=== PATIENT | female | born 1970 | race Caucasian/White ===

== ENCOUNTER → 2021-05-31 15:56 | Outpatient (BNVA) | payer OTHER, SELFPAY | PROVIDERS: Family Provider Electrodiagnostic Medicine; Visit Provider Psychiatry & Neurology Psychiatry | DX: F33.1 Major depressive disorder, recurrent, moderate (principal); F43.10 Post-traumatic stress disorder, unspecified; Z79.899 Other long term (current) drug therapy; Z03.89 Encounter for observation for other suspected diseases and conditions ruled out | CPT/HCPCS: 80053; 80061; 83036; 84443; 85025 ==

== ENCOUNTER → 2022-10-10 12:37 | Outpatient (BNVA) | payer BC, SELFPAY | PROVIDERS: Family Provider Electrodiagnostic Medicine; Visit Provider Family Medicine | DX: E78.5 Hyperlipidemia, unspecified (principal); M19.90 Unspecified osteoarthritis, unspecified site; J44.9 Chronic obstructive pulmonary disease, unspecified; F33.1 Major depressive disorder, recurrent, moderate; F43.10 Post-traumatic stress disorder, unspecified; F17.200 Nicotine dependence, unspecified, uncomplicated; Z71.6 Tobacco abuse counseling; Z12.2 Encounter for screening for malignant neoplasm of respiratory organs | CPT/HCPCS: 80053; 80061; 81000; 84439; 84443; 85025 ==

== ENCOUNTER 2022-10-11 13:52 | Outpatient (CLI) | payer BC, SELFPAY ==
--- NOTE | 2022-10-11 14:02 | XR_ITS ---
WS: [id number] Lumbar spine, 3 views, 10/11/2022 Clinical Data: Back pain Comparison: Lumbar spine, 06/02/2014. Findings: No compression fractures or subluxation is seen. There is minimal degenerative disc narrowing at L5-S 1. There is a levoscoliosis. The transverse processes and SI joints are normal. XR/XR lumbar spine 2-3V* [id number] Impression: Minimal levoscoliosis and disc narrowing at L5-S1.
== END 2022-10-11 13:53 | disposition home or self-care (01) ==
LOC: RAD 13:58
PROVIDERS: PCP Family Medicine; Visit Provider Family Medicine
DX: M41.87 Other forms of scoliosis, lumbosacral region (principal)
CPT/HCPCS: 72100

== ENCOUNTER 2022-10-21 12:25 | Outpatient (CLI) | payer BC, SELFPAY ==
--- NOTE | 2022-10-21 12:45 | CT_ITS ---
WS: [id number] LDCT LUNG CANCER SCREENING HISTORY: lung CA screening TECHNIQUE: Axial imaging performed from the apices to 1 cm below the costophrenic angles. Coronal and sagittal reformats are submitted with axial MIP series. All CT scans at [facility] use at least one of these dose optimization techniques: automated exposure control; mA and/or kV adjustment per patient size (includes targeted exams where dose is matched to clinical indication); or iterativ e reconstruction. DLP: 51.21 mGy.cm DIvol: Mean CTDIvol: 1.10 (mGy) COMPARISON: None available. Diagnostic quality: Satisfactory Lungs: Linear areas of atelectasis at the lung bases. There are a few scattered benign granulomata. N o mass or nodule. No endobronchial lesions. Heart: Normal size heart with no pericardial effusion.. Other findings: No adenopathy. Normal size aorta. 11 mm LEFT adrenal nodule CT/CT lung screening [id number] IMPRESSION: LUNG-RADS: 1S-Negative with Significant Findings FOLLOW UP: 12 Month: Continue annual screening with LDCT OTHER FINDINGS (S MODIFIER): LEFT adrenal nodule at 11 mm. Statistically with n o history of malignancy this is probably benign. For further evaluation MRI of the adrenal gland with and without contrast can be obtained.
== END 2022-10-21 12:26 | disposition home or self-care (01) ==
LOC: RAD 12:27
PROVIDERS: PCP Family Medicine; Visit Provider Family Medicine
DX: Z12.2 Encounter for screening for malignant neoplasm of respiratory organs (principal); F17.219 Nicotine dependence, cigarettes, with unspecified nicotine-induced disorders
CPT/HCPCS: 71271; 80053; 80061; 81000; 84439; 84443; 85025

== ENCOUNTER 2022-11-07 13:48 | Outpatient (CLI) | payer BC, MEDICAID, SELFPAY ==
--- NOTE | 2022-11-07 14:04 | MM_ITS ---
WS: [id number] SCREENING DIGITAL TOMOSYNTHESIS MAMMOGRAM WITH CAD HISTORY: breast CA screening COMPARISON: None available. Bilateral CC and MLO with tomosynthesis views submitted. Synthetic mammography reviewed. Computer aid ed detection analyzed. Breast composition: There are scattered areas of fibroglandular density. No suspicious masses, microc alcifications or architectural distortion. Benign calcifications in each breast. MM/[place] [id number] IMPRESSION: BI-RADS: 2-Benign FOLLOW UP: 1 Year Follow-up
== END 2022-11-07 13:49 | disposition home or self-care (01) ==
PROVIDERS: PCP Family Medicine; Visit Provider Family Medicine
DX: Z12.31 Encounter for screening mammogram for malignant neoplasm of breast (principal)
CPT/HCPCS: 77063; 77067

== ENCOUNTER → 2022-12-02 13:36 | Outpatient (BNVA) | payer BC, MEDICAID, SELFPAY | PROVIDERS: PCP Family Medicine; Visit Provider Family Medicine | DX: Z12.4 Encounter for screening for malignant neoplasm of cervix (principal); Z01.419 Encounter for gynecological examination (general) (routine) without abnormal findings | CPT/HCPCS: 87624 ==

== ENCOUNTER → 2023-07-10 14:45 | Outpatient (BNVA) | payer BC, MEDICAID, SELFPAY | PROVIDERS: PCP Family Medicine; Referring Provider Family Medicine; Visit Provider Student in an Organized Health Care Education/Training Program | DX: G56.23 Lesion of ulnar nerve, bilateral upper limbs (principal); G56.02 Carpal tunnel syndrome, left upper limb | CPT/HCPCS: 73130 ==

== ENCOUNTER 2023-08-14 08:14 | Day surgery (SDC) | payer BC, MEDICAID, SELFPAY ==
[2023-08-14] VITALS (14 sets, daily range): BP systolic 100–179; BP diastolic 60–104; PULSE 73–101; RESP 16–20; TEMP 36.4–36.6; O2SAT 90–96; BMI 30.4
[2023-08-14] MEDS: sodium chloride 0.9% 1,000 ML 30 ML IV (08:50)
[2023-08-14] MEDS: scopolamine 1.5 Patch 1 PATCH TRANSDERMA (08:51)
[2023-08-14] MEDS: acetaminophen 1,000 MG/100 ML PIGGYBACK 400 MG IV (08:51)
[2023-08-14] MEDS: ketorolac 30 mg/mL INJ IVP (08:51)
--- NOTE | 2023-08-14 09:22 | W.PM.OPSFHP ---
Same Day Surgery H&P Indication for Procedure/HPI DATE OF PROCEDURE: August 14, 2023 CHIEF COMPLAINT/INDICATIONFOR SURGICAL PROCEDURE: Left carpal tunnel syndrome, left cubital tunnel syndrome PREOP DIAGNOSIS: Left carpal tunnel syndrome, left cubital tunnel syndrome PLANNED PROCEDURE: Operation Date: 08/14/23 10:00 Proposed Procedures p Carpal Tunnel Release(Left) - Rey Paredes DO s Cubital Tunnel Release(Left) - Rey Paredes DO s Ulnar Nerve Transposition/possible(Left) - Rey Paredes DO Medications/Allergies* Home Medications Medication Instructions Recorded Confirmed Type diphenhydramine 25 1 tab PO .hs 10/31/22 08/14/23 History mg-acetaminophen 500 mg tablet (Tylenol PM Extra Strength) Allergies/Adverse Reactions Allergy/AdvReac Type Severity Reaction Status Date / Time prednisone Allergy Unknown Unknown Verified 07/10/23 15:05 Current Medications: Generic Name Dose Route Start Last Admin Trade Name Freq PRN Reason Stop Dose Admin Sodium Chloride 1,000 mls @ 30 mls/hr 08/14/23 08:45 08/14/23 08:50 Sodium Chloride 0.9% IV 08/15/23 08:44 30 mls/hr .Q24H CLAUDIA Administration Pertinent History/Comorbid Conditions* Medical History (Updated 07/14/23 @ 22:59 by Rey Paredes DO) Severe tobacco use disorder COPD (chronic obstructive pulmonary disease) Dyslipidemia Osteoarthritis Degenerative disc disease delivery delivered Psychiatric care Major depressive disorder PTSD (post-traumatic stress disorder) Surgical History (Updated 10/10/22 @ 13:20 by Hernesto Brink MD) H/O removal of cyst Family History (Updated 10/31/22 @ 13:08 by Paula Leal LPN) Diabetes CAD (coronary artery disease) Dementia Lung disease Cancer Unknown Stroke Denies family history of Clotting disorder Hyperlipidemia Psychiatric illness Chronic kidney disease (CKD) Anesthesia complication Bleeding disorder Hypertension Social History Smoking and tobacco/nicotine status: current every day tobacco/nicotine user cigarettes Packs smoked per day: 3 Years cigarettes smoked: 40 Quit status (tobacco/nicotine): not considering quitting Second hand smoke exposure: Yes Alcohol intake: former Substance/Drug Use: never Lives independently: Yes Marital status: Current gender identity: Female Bev/Yazdanism: Scientologist Special bev needs: No Agree to transfusion: Yes Pertinent Exam Findings alert, oriented x 3, operative site marked and procedure specific exam findings Please refer to office visit on 07/10/2023 for detailed orthopedic examination which included below: Left upper extremity exam normal C-spine ROM No pain. Negative Spurlings Negative Tinel's@ shoulder. Normal ROM Normal ROM elbow. Positive Tinel's@ elbow left Positive elbow flexion test left Left wrist: Positive median compression test. Positive Tinel's Positive Phalens Thenar and intrinsic weakness noted Recommendations Surgery/Procedure today Other Plans: Plan to proceed with left carpal tunnel release, left cubital tunnel release. Patient understands incidence procedure risk benefits complication alternatives of surgery and through shared decision making like to proceed with surgical intervention. All questions answered. Coding Level of Care Code Acute Code for [facility]
--- NOTE | 2023-08-14 09:51 | ANES.PREANE2 ---
Pre-Anesthetic Assessment Height/Weight: Height 1.55 m Weight 73.028 kg Temp Pulse Resp BP Pulse Ox O2 Del Method 97.5 F L 101 H 18 179/104 96 Room Air 08/14/23 08:38 08/14/23 08:38 08/14/23 08:38 08/14/23 08:38 08/14/23 08:38 08/14/23 08:38 Preop Diagnosis: Left carpal tunnel syndrome, left cubital tunnel syndrome Operation Date: 08/14/23 10:00 Proposed Procedures p Carpal Tunnel Release(Left) - Rey Vanderburgh, DO s Cubital Tunnel Release(Left) - Rey Vanderburgh, DO s Ulnar Nerve Transposition/possible(Left) - Rey Vanderburgh, DO Familial anesthetic complications: NOne Was Beta Angel taken within 24 hours: N/A Was Clonidine taken within 24 hours: N/A Last intake: Intake (cup of soda at 0700) Last Liquid Date 08/14/23 Last Liquid Time 07:00 Last Solid Date 08/13/23 Last Solid Time 22:00 Social Tobacco and No alcohol Exam alert, oriented x 3, clear to auscultation bilaterally and regular rate & rhythm Airway Mallampati: Class II Dentition: false Pulmonary Chronic Obstructive Pulmonary Disease Metabolic Hyperlipidemia Anesthetic Plan ASA status: 3 Anesthesia: General Risk of > 500 ml blood loss (7ml/kg in children): No Medications/Allergies Home Medications Medication Instructions Recorded Confirmed Last Taken Type diphenhydramine 25 1 tab PO .hs 10/31/22 08/14/23 08/13/23 History mg-acetaminophen 500 mg tablet (Tylenol PM Extra Strength) atorvastatin 40 mg tablet (Lipitor) 40 mg PO DAILY #90 tabs 04/07/23 08/14/23 08/13/23 Rx meloxicam 15 mg tablet 15 mg PO DAILY #90 tabs 06/04/23 08/14/23 08/13/23 Rx citalopram 20 mg tablet 30 mg (1.5 x 20 mg) PO DAILY 30 07/15/23 08/14/23 08/13/23 Rx days #45 tabs umeclidinium 62.5 mcg-vilanterol 1 inh inhalation Q24H #60 ea 07/21/23 08/14/23 08/14/23 Rx 25 mcg/actuation powdr for inhalation (Anoro Ellipta) Allergies Allergy/AdvReac Type Severity Reaction Status Date / Time prednisone Allergy Unknown Unknown Verified 07/10/23 15:05 Current Medications Generic Name Dose Route Start Last Admin Trade Name Maria Esther PRN Reason Stop Dose Admin Sodium Chloride 1,000 mls @ 30 mls/hr 08/14/23 08:45 08/14/23 08:50 Sodium Chloride 0.9% IV 08/15/23 08:44 30 mls/hr .Q24H CLAUDIA Administration PFSH Anesthesia Medical History Severe tobacco use disorder COPD (chronic obstructive pulmonary disease) Dyslipidemia Osteoarthritis Degenerative disc disease delivery delivered Psychiatric care Major depressive disorder PTSD (post-traumatic stress disorder) Surgical History H/O removal of cyst Family History Unknown Cancer Other CAD (coronary artery disease) Dementia Diabetes Lung disease Stroke Denies family history of Clotting disorder Hyperlipidemia Psychiatric illness Chronic kidney disease (CKD) Anesthesia complication Bleeding disorder Hypertension Social History Smoking and tobacco/nicotine status: current every day tobacco/nicotine user cigarettes Packs smoked per day: 3 Years cigarettes smoked: 40 Quit status (tobacco/nicotine): not considering quitting Second hand smoke exposure: Yes Alcohol intake: former Substance/Drug Use: never Lives independently: Yes Marital status: Current gender identity: Female Bev/Jew: Uatsdin Special bev needs: No Agree to transfusion: Yes Data Anesthesia Cardiac Studies: No Data to Display
[2023-08-14] MEDS: ceFAZolin 2,000 MG in sodium chloride 0.9% (plus) 50 ML 100 MG IV (10:19)
[2023-08-14] MEDS: lidocaine-epi 1% 20 mL INJ INJECTION (10:55)
[2023-08-14] MEDS: ROPivacaine 0.5% SDV 30 mL 150 MG INJECTION (10:55)
--- NOTE | 2023-08-14 11:09 | P.BOP_ITS ---
Date of Procedure: 08/14/2023 Surgeon: Rey Paredes DO Senior Consulting Manager(s): None Procedure(s) performed: Left carpal tunnel release Left cubital tunnel release Findings of the procedure(s): Patient underwent procedure as planned without any issues or complications patient found to have left carpal tunnel syndrome left cubital tunnel syndrome underwent release without any issues or complications. No unstable ulnar nerve and no transposition was performed Estimated blood loss: 5 mL Specimen(s) removed: None Post-operative diagnosis: Left carpal tunnel syndrome, left cubital tunnel syndrome
--- NOTE | 2023-08-14 11:10 | P.OP_ITS ---
Operative Report Date of procedure: August 14, 2023 Surgeon: Rey Paredes DO Procedure: Preoperative diagnosis: Left carpal tunnel syndrome, left cubital tunnel syndrome Postop Diagnosis: Same Procedure done: Left carpal tunnel release Left?cubital tunnel tunnel release (ulnar nerve decompression at elbow) Surgeon: Rey Paredes DO Estimated blood loss: 5 mL Tourniquet? 13 minutes IV fluids: 800 mL Complications: None Findings: See operative report narrative Condition: stable Disposition: same day Brief History: Patient's been seen and worked up in the outpatient setting and findings con sistent with preoperative diagnosis.? Patient has Left carpal tunnel syndrome as well as Left?cubital tunnel syndrome which has been worked up in the outpatient setting has physical exam findings consistent with this as well as confirmatory nerve conduction/EMG nerve conduction study consistent with diagnosis.? Patient's failed conservative treatment.? As result through shared decision making agreed to proceed with? Left carpal tunnel and Left?cubital tunnel release we talked about treatment options as far as nonoperative and operative intervention.? Understands risk benefits complication alternatives surgical nonsurgical treatment options.? Understanding his risks he agrees to proceed with surgical intervention. Understanding these risks he agrees to proceed with surgery.? Consent obtained in office. Procedure: Patient seen evaluate in the preoperative holding area.? Consent was reviewed and signed with patient.? Correct extremity marked.? Patient seen evaluated by anesthesia department once cleared for surgery was then taken back to the operative suite placed in supine position all bony prominences well-padded patient properly secured to bed.? Left upper extremity placed onto armboard.? Nonsterile tourniquet applied Left upper arm.? Patient then underwent anesthesia per the anesthesia department.? Patient's Left upper extremity was then prepped and draped in standard orthopedic fashion.? Final timeout performed.? Patient received appropriate preoperative antibiotics. Esmarch was used exsanguinate the Left upper extremity.? Tourniquet was insufflated to 250 mmHg. I started with the carpal tunnel release first.? I made a standard open carpal tunnel release starting with the distal most extent in the palm at the Pham's cardinal line and the incision line was made in line with the fourth ray and ended just distal to the wrist crease.? Sharp scalpel incision was made through skin and subcutaneous tissue I then utilizing self retainer then began to dissect with dissection scissors split longitudinally the palmar fascia.? Next I then utilizing my physical laboratory assistant Aidandagabe retractors subsequently utilizing scalpel feathered through the palmaris brevis as well as through the transverse carpal ligament distally.? Once I encountered the floor of the transverse carpal ligament and entered into the carpal tunnel I then switched to dissection scissors.? Carefully released the distal extent of the transverse carpal ligament to the palmar fat.? Care was to protect the recurrent branch and not injured this during this part of the case.? Next I then placed a [place] un derneath the transverse carpal ligament proximally to protect the nerve in the carpal tunnel contents.? And then I subsequently under loupe magnification utilize my dissection scissors to release the transverse carpal ligament into the antebrachial fascia under direct visualization with care to keep my scissors with a curved ulnarly away from the palmar cutaneous branch.? The transverse carpal was then completely decompressed proximally and a [place] was then placed both distally and proximally throughout the carpal tunnel and had complete decompression of the nerve.? The nerve did appear to have hourglass shape as it went through the carpal tunnel.? With significant irritation noted around the nerve.? No masses were noted within the contents of the carpal tunnel.? This completed the carpal tunnel release and then I subsequently irrigated the wound bed and placed a wet Ray-Dalia into the incision for later closure. Next marked out the landmarks of the Left elbow of the medial epicondyle and olecranon and made a curvilinear incision following the course of the ulnar nerve at the medial aspect of the elbow.? Sharp scalpel incision was made through skin and subcutaneous tissue.? Next I switched to Littler dissection scissors and spread in plane of the medial antebrachial cutaneous nerve branching which was protected throughout this part of the dissection.? Then I directly came down over the fascia and identified the 2 heads of the FCU fascia and split this Left in the middle and subsequently identified my ulnar nerve distally.? This was then completely released distally under direct visualization and loupe magnification.? Once the nerve was then identified I then subsequently tracked this proximally and released this through Cam's ligament as well as complete decompression of the nerve proximally all the way past the intermuscular septum.? The nerve was completely released and decompressed both proximally and distally.? Ulnar nerve neurolysis performed and completed both proximally and distally with dissection scissors.? I then took the elbow through range of motion and there was no instability or subluxating of the ulnar nerve.? This completed?cubital tunnel release.? ?Next the wound bed was thoroughly irrigated.? Tourniquet was deflated.? Hemostasis was satisfactory at the?cubital tunnel release surgery site. I then inspected the carpal tunnel incision and this was found to have satisfactory hemostasis and all this was maintained through bipolar electrocautery.? At this point time I sequentially closed?cubital tunnel site with 3-0 Vicryl suture in a running horizontal mattress nylon stitch.? ? The carpal tunnel release surgery was then closed in standard interrupted mattress fashion.? Dressing was Xeroform 4 x 4's ABD Curlex soft roll and an Dimas wrap has a bulky soft dressing. Patient was then awakened from anesthesia and taken to PACU in stable condition. Disposition: Patient taken to PACU in stable condition recovering well.? Patient will receive appropriate discharge instructions as well as pain medication postoperatively.? We will follow-up with me in the office in 2 weeks.? Patient understands agrees with current plan.? All questions answered.? He understands if any questions or concerns and contact the office for follow-up appointment..
--- NOTE | 2023-08-14 13:35 | ANE.PACU2 ---
Inpatient post-anesthesia follow up: Airway intact: Yes Vital signs: Temperature 97.5 F Pulse Rate 85 Respiratory Rate 18 Blood Pressure 113/81 Pulse Oximetry 94 Oxygen Delivery Me thod Room Air Oxygen Flow Rate 2 Fraction of Inspir ed Oxygen Hydration adequate: Yes Nausea and vomiting: No Pain level: 1 Mental status: Baseline
== END 2023-08-14 13:35 | disposition home or self-care (01) ==
PROVIDERS: PCP Family Medicine; Visit Provider Student in an Organized Health Care Education/Training Program
PROC: (CPT 64721; principal; 2023-08-14 10:00)
PROC: (CPT 64718; 2023-08-14 10:00)
PROC: (CPT 64718; 2023-08-14 10:00)
DX: G56.02 Carpal tunnel syndrome, left upper limb (principal); G56.22 Lesion of ulnar nerve, left upper limb; J44.9 Chronic obstructive pulmonary disease, unspecified; E78.5 Hyperlipidemia, unspecified; F17.210 Nicotine dependence, cigarettes, uncomplicated
CPT/HCPCS: 64718; 64721; J0131; J0330; J0690; J1885; J2405; J2704; J2710; J2795; J3010; J3490; J3535; J7030

== ENCOUNTER 2023-09-01 12:15 | Outpatient (CLI) | payer OTHER, SELFPAY ==
--- NOTE | 2023-09-01 12:21 | XR_ITS ---
WS: [id number] Comparison 10/11/2022. No fracture or dislocation. Disc bases are preserved. Increased lumbar lordosis. Mild levoscoliosis. Posterior elements are intact. IMPRESSION: 1. Mild levoscoliosis and increased lordosis. 2. No fracture or malalignment.
--- NOTE | 2023-09-01 12:21 | XR_ITS ---
WS: [id number] Exam: XR chest 2V* [id number] Date/Time of Exam: 09/01/2023 12:23 PM Reason For Exam: COPD Findings: The lungs are clear and fully expanded. Costophrenic angles are sharp. No infiltrates. Bronchovascula r relief appears normal. Cardiac silhouette is unremarkable. Bony elements are intact. IMPRESSION: Unremarkable chest radiograph.
== END 2023-09-01 12:16 | disposition home or self-care (01) ==
LOC: RAD 12:20
PROVIDERS: PCP Family Medicine; Visit Provider Dermatology
DX: Z02.71 Encounter for disability determination (principal); J44.9 Chronic obstructive pulmonary disease, unspecified; M54.9 Dorsalgia, unspecified; M41.86 Other forms of scoliosis, lumbar region
CPT/HCPCS: 71046; 72100

== ENCOUNTER 2023-12-04 15:05 | Outpatient (CLI) | payer BC, MEDICAID, SELFPAY ==
--- NOTE | 2023-12-04 15:30 | CT_ITS ---
WS: [id number] LDCT LUNG CANCER SCREENING TECHNIQUE: Noncontrast CT of the chest with coronal and sagittal reformatted images. CLINICAL INFORMATION: screening COMPARISON: CT 10/21/2022 DLP: 60.92 mGy.cm DIvol: Mean CTDIvol: 1.40 (mGy) All CT scans at [facility] use at least one of these dose optimization techniques: automat ed exposure control; mA and/or kV adjustment per patient size (includes targeted exams where dose is matched to clinical indication); or iterative reconstruction. FINDINGS: Calcified granuloma RIGHT upper lobe. Subsegmental atelectasis in the lung bases. Calcified granuloma RIGHT lower lobe. Bibasilar atelectasis. Tiny noncalcified nodule RIGHT middle lobe. Small nodule RIGHT lower lobe along the fissure measuring 4 mm. This appears stable compared to previous. Scattered calcified granulomas in the LEFT lung. A few tiny subpleural nodules LEFT upper lobe. Normal caliber thoracic aorta. No mediastinal or hilar lymphadenopathy. No axillary lymphadenopathy. Small esophageal hernia. Mild thoracic curve. Mild thoracic kyphosis. LEFT adrenal adenoma measuring 1.[address]/CT lung screening [id number] IMPRESSION: LUNG-RADS: 2-Benign Appearance or Behavior FOLLOW UP: 12 Month: Continue annual screening with LDCT
== END 2023-12-04 15:06 | disposition home or self-care (01) ==
PROVIDERS: PCP Family Medicine; Visit Provider Family Medicine
DX: Z12.2 Encounter for screening for malignant neoplasm of respiratory organs (principal); F17.219 Nicotine dependence, cigarettes, with unspecified nicotine-induced disorders; J84.10 Pulmonary fibrosis, unspecified; J98.11 Atelectasis; R91.8 Other nonspecific abnormal finding of lung field; K44.9 Diaphragmatic hernia without obstruction or gangrene; M40.204 Unspecified kyphosis, thoracic region
CPT/HCPCS: 71271

== ENCOUNTER → 2024-01-22 16:16 | Outpatient (BNVA) | payer BC, SELFPAY | PROVIDERS: PCP Family Medicine; Visit Provider Family Medicine | DX: E78.5 Hyperlipidemia, unspecified (principal) | CPT/HCPCS: 80053; 80061; 84439; 84443; 85025 ==

== ENCOUNTER 2024-08-25 15:33 | Outpatient (CLI) | payer BC, MEDICAID, SELFPAY ==
--- NOTE | 2024-08-25 15:45 | USR_ITS ---
PROCEDURE INFORMATION: Exam: US Duplex Bilateral Lower Extremity Arteries Exam date and time: 08/25/2024 3:39 PM Age: 53 years old Clinical indication: Screening exam; Concern for pad TECHNIQUE: Imaging protocol: Real-time ultrasound scan of the arteries of the bilateral lower extremities with 2-D landaverde scale, color Doppler flow and spectral waveform analysis. Images documented and saved. COMPARISON: No relevant prior studies available. FINDINGS: Right common femoral artery: No occlusion or significant stenosis. Normal waveform. Right superficial femoral artery: No occlusion or significant stenosis. Normal waveform. Right popliteal artery: No occlusion or significant stenosis. Normal waveform. Right calf/foot arteries: No occlusion or significant stenosis in the visualized arteries. Normal waveforms. Dorsalis pedis artery is patent. Left common femoral artery: No occlusion or significant stenosis. Normal waveform. Left superficial femoral artery: No occlusion or significant stenosis. Normal waveform. Left popliteal artery: No occlusion or significant stenosis. Normal waveform. Left calf/foot arteries: No occlusion or significant stenosis in the visualized arteries. Normal waveforms. Dorsalis pedis artery is patent. US/CV arterial duplex [facility] [id number] IMPRESSION: No stenosis or occlusion.
== END 2024-08-25 15:34 | disposition home or self-care (01) ==
PROVIDERS: PCP Family Medicine; Visit Provider Family Medicine
DX: R20.9 Unspecified disturbances of skin sensation (principal)
CPT/HCPCS: 93925

== ENCOUNTER 2025-01-06 05:57 | Day surgery (SDC) | payer BC, MEDICAID, SELFPAY ==
[2025-01-06] VITALS (14 sets, daily range): BP systolic 102–164; BP diastolic 77–95; PULSE 85–111; RESP 16–18; TEMP 35.8–36.3; O2SAT 90–96; BMI 30.2
--- NOTE | 2025-01-06 06:59 | ANES.PREANE2 ---
Pre-Anesthetic Assessment Height/Weight: Height 1.55 m Temp Pulse Resp BP Pulse Ox O2 Del Method 97.4 F L 86 17 164/95 96 Room Air 01/06/25 06:22 01/06/25 06:22 01/06/25 06:22 01/06/25 06:22 01/06/25 06:22 01/06/25 06:22 Operation Date: 01/06/25 07:25 Proposed Procedures p RIGHT Carpal Tunnel Release(Right) - Rey Juniata, DO s RIGHT Cubital Tunnel Release(Right) - Rey Juniata, DO s POSSIBLE Ulnar Nerve Transposition(Right) - Rey Juniata, DO Familial anesthetic complications: none Was Beta Angel taken within 24 hours: N/A Was Clonidine taken within 24 hours: N/A Last intake: Intake Last Liquid Date 01/05/25 Last Liquid Time 19:00 Last Solid Date 01/05/25 Last Solid Time 19:00 Social Tobacco and No alcohol Exam alert, oriented x 3, clear to auscultation bilaterally and regular rate & rhythm Airway Mallampati: Class III Pulmonary Chronic Obstructive Pulmonary Disease Anesthetic Plan ASA status: 3 Anesthesia: General and Regional (specify below) Risk of > 500 ml blood loss (7ml/kg in children): No Medications/Allergies Home Medications ?Medication ?Instructions ?Recorded ?Confirmed ?Last Taken ?Type diphenhydramine 25 1 tab PO .hs 10/31/22 01/05/25 01/05/25 History mg-acetaminophen 500 mg tablet (Tylenol PM Extra Strength) celecoxib 100 mg capsule (Celebrex) 100 mg PO BID #60 caps 09/16/24 01/05/25 01/05/25 Rx atorvastatin 40 mg tablet (Lipitor) 40 mg PO DAILY #90 tabs 09/22/24 01/05/25 01/05/25 Rx umeclidinium 62.5 mcg-vilanterol 1 inh inhalation Q24H #60 ea 11/24/24 01/05/25 01/06/25 Rx 25 mcg/actuation powdr for inhalation (Anoro Ellipta) citalopram 40 mg tablet 40 mg PO DAILY 30 days #30 tabs 12/29/24 01/05/25 01/05/25 Rx diclofenac sodium 1 % topical gel 4 g topical QID PRN Pain 01/05/25 01/05/25 Unknown History (Voltaren Arthritis Pain) gabapentin 100 mg capsule 100 mg PO DAILY 01/05/25 01/05/25 01/03/25 History Allergies Allergy/AdvReac Type Severity Reaction Status Date / Time prednisone Allergy Severe Unknown Verified 01/06/25 06:13 [facility] Anesthesia Medical History Right carpal tunnel syndrome Major depressive disorder, recurrent, mild Severe tobacco use disorder COPD (chronic obstructive pulmonary disease) Dyslipidemia Osteoarthritis Degenerative disc disease delivery delivered Psychiatric care Major depressive disorder PTSD (post-traumatic stress disorder) Surgical History H/O removal of cyst Family History Unknown Cancer Other CAD (coronary artery disease) Dementia Diabetes Lung disease Stroke Denies family history of Clotting disorder Hyperlipidemia Psychiatric illness Chronic kidney disease (CKD) Anesthesia complication Bleeding disorder Hypertension Social History Smoking and tobacco/nicotine status: current every day tobacco/nicotine user cigarettes Packs smoked per day: 3 Years cigarettes smoked: 40 Quit status (tobacco/nicotine): not considering quitting Second hand smoke exposure: Yes Alcohol intake: former Substance/Drug Use: never Lives independently: Yes Marital status: Current gender identity: Female Bev/Christianity: Taoist Special bev needs: No Agree to transfusion: Yes Anesthesia Procedures Nerve Block Nerve Block 1: Main Anesthesia: general anesthesia Time Out Performed: Yes Consent: requested by attending/covering physician, from patient, from other, risks and benefits reviewed and patient agrees to proceed Nerve block location: supraclavicular (R) Anesthesia monitors applied: pulse oximetry, EKG, BP cuff and oxygen Nerve block position: semi sitting Anesthetic Used: ropivicaine 0.5% (20 ml) and with decadron (4 mg) Ultrasound used to: recognize landmarks, visualize and ID brachial plexus, in supraclavicular region and visualize and ID interscalene groove Interscalene/Femoral BLK: 4 stimuplex 21 g needle used for position and inplane approach, visualize local anesthetic spread and no vascular puncture identified Injection: neg aspiration of heme Patient Tolerated Procedure: well Complications: none
--- NOTE | 2025-01-06 07:03 | W.PM.OPSFHP ---
Same Day Surgery H&P Indication for Procedure/HPI DATE OF PROCEDURE: January 06, 2025 CHIEF COMPLAINT/INDICATIONFOR SURGICAL PROCEDURE: Right carpal tunnel syndrome, right cubital tunnel syndrome PREOP DIAGNOSIS: Right carpal tunnel syndrome, right cubital tunnel syndrome PLANNED PROCEDURE: Operation Date: 01/06/25 07:25 Proposed Procedures p RIGHT Carpal Tunnel Release(Right) - Rey Reggie, DO s RIGHT Cubital Tunnel Release(Right) - Rey Reggie, DO s POSSIBLE Ulnar Nerve Transposition(Right) - Rey [place], DO Medications/Allergies* Home Medications ?Medication ?Instructions ?Recorded ?Confirmed ?Type diphenhydramine 25 1 tab PO .hs 10/31/22 01/05/25 History mg-acetaminophen 500 mg tablet (Tylenol PM Extra Strength) diclofenac sodium 1 % topical gel 4 g topical QID PRN Pain 01/05/25 01/05/25 History (Voltaren Arthritis Pain) gabapentin 100 mg capsule 100 mg PO DAILY 01/05/25 01/05/25 History Allergies/Adverse Reactions Allergy/AdvReac Type Severity Reaction Status Date / Time prednisone Allergy Severe Unknown Verified 01/06/25 06:13 Pertinent History/Comorbid Conditions* Medical History (Updated 12/03/24 @ 16:03 by Hernesto Brink MD) Right carpal tunnel syndrome Major depressive disorder, recurrent, mild Severe tobacco use disorder COPD (chronic obstructive pulmonary disease) Dyslipidemia Osteoarthritis Degenerative disc disease delivery delivered Psychiatric care Major depressive disorder PTSD (post-traumatic stress disorder) Surgical History (Updated 10/10/22 @ 13:20 by Hernesto Brink MD) H/O removal of cyst Family History (Updated 10/31/22 @ 13:08 by Paula Leal LPN) Diabetes CAD (coronary artery disease) Dementia Lung disease Cancer Unknown Stroke Denies family history of Clotting disorder Hyperlipidemia Psychiatric illness Chronic kidney disease (CKD) Anesthesia complication Bleeding disorder Hypertension Social History Smoking and tobacco/nicotine status: current every day tobacco/nicotine user cigarettes Packs smoked per day: 3 Years cigarettes smoked: 40 Quit status (tobacco/nicotine): not considering quitting Second hand smoke exposure: Yes Alcohol intake: former Substance/Drug Use: never Lives independently: Yes Marital status: Current gender identity: Female Bev/Lutheran: Sikh Special bev needs: No Agree to transfusion: Yes Pertinent Exam Findings alert, oriented x 3, operative site marked and procedure specific exam findings Please refer to detail orthopedic examination on 11/09/2024 listed below: Examination left upper extremity demonstrates incisions to the elbow as well as hand are well-healed no signs of infection. Patient has continued improvement in median ulnar nerve paresthesias from previous surgery Examination of the right upper extremity does demonstrate positive Tinel's over the carpal tunnel and cubital tunnel. With appreciable weakness and atrophy over the thenar and intrinsic musculature. Recommendations Risks and benefits of procedure reviewed and Patient/family agree to proceed Surgery/Procedure today Other Plans: Plan to proceed to the OR today for right carpal tunnel release and right cubital tunnel release with possible ulnar nerve transposition. Patient once again understands the ins and outs procedure the risk benefits complication alternatives to surgery and through shared decision-making elects proceed with surgical invention. All questions answered at this time. Coding Level of Care Code Acute Code for Luara Clemente
[2025-01-06] MEDS: acetaminophen 1,000 MG/100 ML PIGGYBACK 400 MG IV (07:13)
[2025-01-06] MEDS: ceFAZolin 2,000 MG in sodium chloride 0.9% (plus) 50 ML 100 MG IV (07:28)
--- NOTE | 2025-01-06 08:31 | W.PM.BPON ---
Date of Procedure: [January 06, 2025] Surgeon: [Dr. Reggie DO] Burr Machine Operator(s): [Paolo Paredes PA-C] Procedure(s) performed: [Right carpal tunnel release and right cubital tunnel release.] Findings of the procedure(s): [Right carpal tunnel syndrome and right cubital tunnel syndrome. No ulnar nerve subluxation with range of motion so no ulnar nerve transposition needed.] Estimated blood loss: [10 mL] Specimen(s) removed: [N/A] Post-operative diagnosis: [Right carpal tunnel syndrome right cubital tunnel syndrome]
--- NOTE | 2025-01-06 08:34 | PM.OP ---
Operative Report Date of procedure: January 06, 2025 Surgeon: Rey Paredes DO Labor Relations Worker: Paolo Paredes PA-C: PA was necessary for assistance in this case with hand positioning to execute the procedure, retraction and protection of neurovascular structures as well as to assist with wound closure and dressing application. Procedure: Preop Diagnosis Right carpal tunnel syndrome Right cubital tunnel syndrome Postop Diagnosis: Same Procedure done: Right carpal tunnel release Right?cubital?tunnel tunnel release (ulnar nerve decompression at elbow) Surgeon: Rey Paredes DO Estimated blood loss: 10mL Tourniquet? 10 minutes IV fluids: 800 mL Complications: None Findings: See operative report narrative Condition: stable Disposition: same day Brief History: Patient's been seen and worked up in the outpatient setting and findings consistent with preoperative diagnosis.? Patient has right carpal tunnel syndrome as well as right?cubital?tunnel syndrome which has been worked up in the outpatient setting has physical exam findings consistent with this as well as confirmatory nerve conduction/EMG nerve conduction study consistent with diagnosis.? Patient's failed conservative treatment.? As result through shared decision making agreed to proceed with? right carpal tunnel and right?cubital?tunnel release with possible ulnar nerve transposition, we talked about treatment options as far as nonoperative and operative intervention.? Understands risk benefits complication alternatives surgical nonsurgical treatment options.? Understanding risks pt agrees to proceed with surgical intervention. Understanding these risks pt agrees to proceed with surgery.? Consent obtained in preop. Procedure: Patient seen evaluate in the preoperative holding area.? Consent was reviewed and signed with patient.? Correct extremity marked.? Patient seen evaluated by anesthesia department once cleared for surgery was then taken back to the operative suite placed in supine position all bony prominences well-padded patient properly secured to bed.? right upper extremity placed onto armboard.? Nonsterile tourniquet applied right upper arm.? Patient then underwent anesthesia per the anesthesia department.? Patient's right upper extremity was then prepped and draped in standard orthopedic fashion.? Final timeout performed.? Patient received appropriate preoperative antibiotics. Esmarch was used exsanguinate the right upper extremity.? Tourniquet was insufflated to 250 mmHg. I started with the carpal tunnel release first.? I made a standard open carpal tunnel release starting with the distal most extent in the palm at the Pham's cardinal line and the incision line was made in line with the fourth ray and ended just distal to the wrist crease.? Sharp scalpel incision was made through skin and subcutaneous tissue I then utilizing self retainer then began to dissect with dissection scissors split longitudinally the palmar fascia.? Next I then utilizing my educational assistant teacher Raghu retractors subsequently utilizing scalpel feathered through the palmaris brevis as well as through the transverse carpal ligament distally.? Once I encountered the floor of the transverse carpal ligament and entered into the carpal tunnel I then switched to dissection scissors.? Carefully released the distal extent of the transverse carpal ligament to the palmar fat.? Care was to protect the recurrent branch and not injured this during this part of the case.? Next I then placed a Sharon underneath the transverse carpal ligament proximally to protect the nerve in the carpal tunnel contents.? And then I subsequently under loupe magnification utilize my dissection scissors to release the transverse carpal ligament into the antebrachial fascia under direct visualization with care to keep my scissors with a curved ulnarly away from the palmar cutaneous branch.? The transverse carpal was then completely decompressed proximally and a Sharon was then placed both distally and proximally throughout the carpal tunnel and had complete decompression of the nerve.? The nerve did appear to have hourglass shape as it went through the carpal tunnel.? With significant irritation noted around the nerve.? No masses were noted within the contents of the carpal tunnel.? This completed the carpal tunnel release and then I subsequently irrigated the wound bed and placed a wet Ray-Dalia into the incision for later closure. Next marked out the landmarks of the right elbow of the medial epicondyle and olecranon and made a curvilinear incision following the course of the ulnar nerve at the medial aspect of the elbow.? Sharp scalpel incision was made through skin and subcutaneous tissue.? Next I switched to Littler dissection scissors and spread in plane of the medial antebrachial cutaneous nerve branching which was protected throughout this part of the dissection.? Then I directly came down over the fascia and identified the 2 heads of the FCU fascia and split this right in the middle and subsequently identified my ulnar nerve distally.? This was then completely released distally under direct visualization and loupe magnification.? Once the nerve was then identified I then subsequently tracked this proximally and released this through Cam's ligament as well as complete decompression of the nerve proximally all the way past the intermuscular septum.? The nerve was completely released and decompressed both proximally and distally.? Ulnar nerve neurolysis performed and completed both proximally and distally with dissection scissors.? I then took the elbow through range of motion and there was no instability or subluxating of the ulnar nerve.? This completed?cubital?tunnel release.? ?Next the wound bed was thoroughly irrigated.? Tourniquet was deflated.? Hemostasis was satisfactory at the?cubital?tunnel release surgery site. I then inspected the carpal tunnel incision and this was found to have satisfactory hemostasis and all this was maintained through bipolar electrocautery.? At this point time I sequentially closed?cubital?tunnel site with 3-0 Vicryl suture in a running horizontal mattress nylon stitch.? ? The carpal tunnel release surgery was then closed in standard interrupted mattress fashion.? Dressing was Xeroform 4 x 4's ABD Curlex soft roll and an Dimas wrap has a bulky soft dressing. Patient was then awakened from anesthesia and taken to PACU in stable condition. Disposition: Patient taken to PACU in stable condition recovering well.? Patient will receive appropriate discharge instructions as well as pain medication postoperatively.? We will follow-up with me in the office in 2 weeks.? Patient understands agrees with current plan.? All questions answered.? Pt understands if any questions or concerns and contact the office for follow-up appointment.
--- NOTE | 2025-01-06 08:42 | PM.PACU ---
PACU note Narrative: Patient is a 54-year-old female who just underwent a right carpal tunnel and right cubital tunnel release. Patient transferred to PACU in stable condition. Pain is well controlled. Dressing on hand is dry and in place. Patient's fingers are warm and well-perfused. normal cap refill under 2 seconds. Unable to assess any further motor or sensation due to residual block and patient still under anesthesia. Exam: unarousable Disposition: discharged
--- NOTE | 2025-01-06 09:30 | SUR.PHASEI ---
Pt O2 sat in the mid 80s on room air, pt pulling nasal cannual out because it was uncomfortable, pt non symptomatic, Dr Bernabe notified and stated for pt to go back to [facility]PS for observation.
--- NOTE | 2025-01-06 15:34 | ANE.PACU2 ---
Inpatient post-anesthesia follow up: Airway intact: Yes Vital signs: Temperature 97.3 F Pulse Rate 99 Respiratory Rate 18 Blood Pressure 102/85 Pulse Oximetry 92 Oxygen Delivery Me thod Room Air Oxygen Flow Rate 2 Fraction of Inspir ed Oxygen Hydration adequate: Yes Nausea and vomiting: No Pain level: 1 Mental status: Baseline
== END 2025-01-06 11:48 | disposition home or self-care (01) ==
PROVIDERS: PCP Family Medicine; Visit Provider Student in an Organized Health Care Education/Training Program
PROC: (CPT 64721; principal; 2025-01-06 07:25)
PROC: (CPT 64718; 2025-01-06 07:25)
DX: G56.01 Carpal tunnel syndrome, right upper limb (principal); G56.21 Lesion of ulnar nerve, right upper limb; J44.9 Chronic obstructive pulmonary disease, unspecified; F33.9 Major depressive disorder, recurrent, unspecified; E78.5 Hyperlipidemia, unspecified; M19.90 Unspecified osteoarthritis, unspecified site; F43.10 Post-traumatic stress disorder, unspecified; F17.210 Nicotine dependence, cigarettes, uncomplicated
CPT/HCPCS: 64718; 64721; J0131; J0330; J0690; J1100; J1885; J2250; J2371; J2405; J2704; J2795; J3010; J3490; J3535; J7030; J9999